=== PATIENT | male | born 1950 | race Caucasian/White ===

== ENCOUNTER 2022-03-25 06:45 | Inpatient (IN) | payer MEDICARE, MEDICAID ==
[~2022-03-25] VITALS: Ht 167.6 cm; Wt 74.8 kg
[2022-03-25] VITALS (12 sets, daily range): BP systolic 133–161; BP diastolic 54–83
[2022-03-25] MEDS ORDERED: METR-167 PO (07:48)
[2022-03-25] MEDS ORDERED: FENO145 PO (07:50)
[2022-03-25] MEDS ORDERED: PIOG30TA10 PO (07:50)
[2022-03-25] MEDS ORDERED: LINA145C PO (07:51)
[2022-03-25] MEDS ORDERED: COR25 PO (07:52)
[2022-03-25] MEDS ORDERED: HYDR-4135 PO (07:53)
[2022-03-25] MEDS ORDERED: ASPI-1406 PO (07:55)
[2022-03-25] MEDS ORDERED: CLOP-31 PO (07:55)
[2022-03-25] MEDS ORDERED: ROSU40TA PO (07:57)
[2022-03-25] MEDS ORDERED: GLIP1TAB4 MT (07:57)
[2022-03-25] MEDS ORDERED: CILO100T PO (07:59)
[2022-03-25] MEDS ORDERED: MIDAZOLAM HCL 2 MG/2 ML VIAL ONE ×2 (08:00→10:01)
[2022-03-25] MEDS ORDERED: HEPARIN 1000 UNITS/ML 10ML ONE (08:00)
[2022-03-25] MEDS ORDERED: IODIXANOL 320 MG/ML 150ML BOTTLE IV ONE (08:00)
[2022-03-25] MEDS ORDERED: CLON-457 PO (08:00)
[2022-03-25] MEDS ORDERED: LIDOCAINE HCL 1% 50ML VIAL (10MG/ML) ONE (08:00)
[2022-03-25] MEDS ORDERED: FENTANYL CITRATE/PF 50MCG/ML 2ML VIAL ONE (08:00)
[2022-03-25] MEDS ORDERED: ICOS0.5C PO (08:02)
[2022-03-25] MEDS ORDERED: TAMS-11 PO (08:03)
[2022-03-25] MEDS ORDERED: ASPIRIN 325MG TABLET ONE (10:33)
[2022-03-25] MEDS ORDERED: CLOPIDOGREL 75MG TABLET ONE (10:34)
[2022-03-25] MEDS ORDERED: ONDANSETRON HCL 4MG/2ML INJ IV PRN (10:45)
[2022-03-25] MEDS ORDERED: ATROPINE SULFATE 1MG/10ML SYR IV PRN (10:45)
[2022-03-25] MEDS ORDERED: ACETAMINOPHEN 325MG TABLET PO PRN (10:45)
[2022-03-25] MEDS: TAZOBACTAM INJ SCH ×2 (11:52→20:02)
[2022-03-25] MEDS: CEFTOLOZANE INJ SCH ×2 (11:52→20:02)
[2022-03-25] MEDS: SODIUM CHLORIDE INJ SCH ×2 (11:52→20:02)
[2022-03-25] MEDS: HYDROCODONE/ACETAMINOPHEN 10/325MG TABLET PO PRN ×2 (12:52→20:03)
[2022-03-25] MEDS ORDERED: DEXTROSE 50% WATER 50ML SYRINGE IV PRN (19:30)
[2022-03-25] MEDS: CARVEDILOL 12.5MG TABLET PO SCH (20:23)
[2022-03-25] MEDS: BLOOD SUGAR DIAGNOSTIC STRIP TEST SCH (20:24)
[2022-03-25] MEDS ORDERED: ATORVASTATIN CALCIUM 10MG TABLET PO SCH (21:00)
[2022-03-25] MEDS: AMLODIPINE 5MG TABLET PO SCH (21:18)
[2022-03-25] MEDS: INSULIN LISPRO 100 UNITS/ML SUBCUT SCH (21:19)
[2022-03-25] MEDS ORDERED: NALOXONE HCL 0.4MG/ML VIAL IV PRN (22:30)
[2022-03-25] MEDS: HYDRALAZINE HCL 50MG TABLET PO SCH (23:29)
[2022-03-26] VITALS: BP 124/55
[2022-03-26 02:00] VITALS: BP 153/63
[2022-03-26] MEDS: HYDROCODONE/ACETAMINOPHEN 10/325MG TABLET PO PRN (04:08)
[2022-03-26] MEDS: CEFTOLOZANE INJ SCH (04:12)
[2022-03-26] MEDS: SODIUM CHLORIDE INJ SCH (04:12)
[2022-03-26] MEDS: TAZOBACTAM INJ SCH (04:12)
[2022-03-26 06:00] VITALS: BP 143/58
[2022-03-26] MEDS: BLOOD SUGAR DIAGNOSTIC STRIP TEST SCH (06:53)
[2022-03-26] MEDS ORDERED: GLIPIZIDE 5MG TABLET PO SCH (07:00)
[2022-03-26] MEDS: INSULIN LISPRO 100 UNITS/ML SUBCUT SCH (07:12)
[2022-03-26 07:30] VITALS: BP 143/58
[2022-03-26 07:38] LABS: BASOPHILS % 0.7 % (0.0-2.0); EOSINOPHILS % 1.6 % (0.0-5.0); HEMATOCRIT. 27.7 % (42.0-52.0); HEMOGLOBIN. 9.1 g/dL (14.0-18.0); LYMPHOCYTES % 18.7 % (20.0-50.0); MEAN CORPUSCULAR HEMOGLOBIN 26.6 pg (28.0-32.0); MEAN CORPUSCULAR VOLUME 80.8 fL (80.0-94.0); MEAN PLATELET VOLUME 7.3 fl (7.4-10.4); MONOCYTES % 11.6 % (2.0-8.0); NEUTROPHILS % 67.4 % (40.0-76.0); PLATELET 400 x1000/uL (130-400); RED BLOOD CELL COUNT 3.43 mill/uL (4.7-6.1); RED CELL DISTRIBUTION WIDTH 15.2 % (11.6-14.6)
[2022-03-26 07:52] VITALS: BP 143/78
[2022-03-26 07:58] LABS: CHLORIDE 106 mEq/L (98-107)
[2022-03-26] MEDS: TAMSULOSIN HCL 0.4MG SR CAPSULE PO SCH ×2 (08:15→08:23)
[2022-03-26] MEDS: AMLODIPINE 5MG TABLET PO SCH (08:16)
[2022-03-26] MEDS: HYDRALAZINE HCL 50MG TABLET PO SCH (08:16)
[2022-03-26] MEDS: CARVEDILOL 12.5MG TABLET PO SCH (08:16)
[2022-03-26] MEDS ORDERED: CLOPIDOGREL 75MG TABLET PO SCH (09:00)
[2022-03-26] MEDS ORDERED: ASPIRIN 325MG TABLET PO SCH (09:00)
[2022-03-26] MEDS ORDERED: ASPIRIN 81MG EC TABLET PO SCH (09:00)
== END 2022-03-26 10:00 | disposition home or self-care (01) | DRG 253 ==
LOC: CCL 06:45 → 5EST 06:46
PROVIDERS: ADMIT Specialist; ATTEND Specialist
PROC: 047J3DZ Dilation of Left External Iliac Artery with Intraluminal Device, Percutaneous Approach (ICD-10-PCS; principal; 2022-03-25)
PROC: 047H3DZ Dilation of Right External Iliac Artery with Intraluminal Device, Percutaneous Approach (ICD-10-PCS; 2022-03-25)
DX: I70.245 Atherosclerosis of native arteries of left leg with ulceration of other part of foot (principal); M86.9 Osteomyelitis, unspecified; E11.51 Type 2 diabetes mellitus with diabetic peripheral angiopathy without gangrene; I70.8 Atherosclerosis of other arteries; I25.10 Atherosclerotic heart disease of native coronary artery without angina pectoris; I10 Essential (primary) hypertension; Z20.822 Contact with and (suspected) exposure to COVID-19; E11.621 Type 2 diabetes mellitus with foot ulcer; E78.5 Hyperlipidemia, unspecified; L97.529 Non-pressure chronic ulcer of other part of left foot with unspecified severity; N40.0 Benign prostatic hyperplasia without lower urinary tract symptoms; J44.9 Chronic obstructive pulmonary disease, unspecified; E11.40 Type 2 diabetes mellitus with diabetic neuropathy, unspecified; E11.69 Type 2 diabetes mellitus with other specified complication; Z95.1 Presence of aortocoronary bypass graft; Z79.899 Other long term (current) drug therapy; Z87.891 Personal history of nicotine dependence; Z79.84 Long term (current) use of oral hypoglycemic drugs; Z79.82 Long term (current) use of aspirin; Z89.429 Acquired absence of other toe(s), unspecified side; I70.221 Atherosclerosis of native arteries of extremities with rest pain, right leg
CPT/HCPCS: 36415; 37221; 37223; 73630; 75710; 80048; 82962; 83036; 85025; 85347; 87070; 87077; 87186; 87426; C1725; C1726; C1769; C1876; C1893; C1894; C9803; J1644; J1815; J2250; J3010; J3490; Q9967

== ENCOUNTER 2022-06-09 08:55 | Inpatient (IN) | payer MEDICARE, MEDICAID ==
[~2022-06-09] VITALS: Ht 167.6 cm; Wt 71.7 kg
[~2022-06-09 08:55] MED LIST: ASPI-1406 PO; CILO100T3 PO; CLON-457 PO; CLOP-31 PO; COR25 PO; FENO145 PO; GLIP1TAB4 MT; HYDR-4135 PO; ICOS0.5C PO; LINA145C PO; METR-167 PO; PIOG30TA10 PO; ROSU40TA PO; TAMS-11 PO
[2022-06-09] MEDS ORDERED: IODIXANOL 320MG/ML 100 ML BOTTLE IV ONE (09:13)
[2022-06-09] MEDS ORDERED: GABA-532 PO (09:59)
[2022-06-09] MEDS ORDERED: HEPARIN 1000 UNITS/ML 10ML ONE (10:27)
[2022-06-09] MEDS ORDERED: MIDAZOLAM HCL 2 MG/2 ML VIAL ONE ×2 (10:28→11:21)
[2022-06-09] MEDS ORDERED: FENTANYL CITRATE/PF 50MCG/ML 2ML VIAL ONE (10:28)
[2022-06-09] MEDS ORDERED: LIDOCAINE HCL/PF 1% 10 MG/ML 5ML VIAL ONE ×2 (10:32→10:50)
[2022-06-09] MEDS ORDERED: CLOPIDOGREL 75MG TABLET ONE (11:24)
[2022-06-09] MEDS ORDERED: ASPIRIN 325MG TABLET ONE (11:24)
[2022-06-09] MEDS ORDERED: ATROPINE SULFATE 1MG/10ML SYR IV PRN (11:45)
[2022-06-09] MEDS ORDERED: ACETAMINOPHEN 325MG TABLET PO PRN (11:45)
[2022-06-09] MEDS ORDERED: ONDANSETRON HCL 4MG/2ML INJ IV PRN (11:45)
[2022-06-09] MEDS ORDERED: ZOLPIDEM TARTRATE 5MG TABLET PO PRN (13:00)
[2022-06-09 14:54] VITALS: BP 150/67
[2022-06-09 16:00] VITALS: BP 136/76
[2022-06-09 20:00] VITALS: BP 139/66
[2022-06-10] VITALS: BP 148/74
[2022-06-10 04:00] VITALS: BP 152/76
[2022-06-10 07:16] LABS: BASOPHILS % 0.4 % (0.0-2.0); EOSINOPHILS % 0.8 % (0.0-5.0); HEMATOCRIT. 33.7 % (42.0-52.0); HEMOGLOBIN. 11.2 g/dL (14.0-18.0); LYMPHOCYTES % 19.7 % (20.0-50.0); MEAN CORPUSCULAR HEMOGLOBIN 25.7 pg (28.0-32.0); MEAN CORPUSCULAR VOLUME 76.9 fL (80.0-94.0); MEAN PLATELET VOLUME 7.6 fl (7.4-10.4); MONOCYTES % 8.7 % (2.0-8.0); NEUTROPHILS % 70.4 % (40.0-76.0); PLATELET 442 x1000/uL (130-400); RED BLOOD CELL COUNT 4.38 mill/uL (4.7-6.1); RED CELL DISTRIBUTION WIDTH 16.2 % (11.6-14.6)
[2022-06-10 07:53] LABS: CHLORIDE 100 mEq/L (98-107)
[2022-06-10 08:27] VITALS: BP 152/73
[2022-06-10] MEDS ORDERED: ASPIRIN 325MG TABLET PO SCH (09:00)
[2022-06-10] MEDS ORDERED: CLOPIDOGREL 75MG TABLET PO SCH (09:00)
[2022-06-10] MEDS ORDERED: ASPIRIN 81MG TABLET PO SCH (09:00)
== END 2022-06-10 09:45 | disposition home or self-care (01) | DRG 254 ==
LOC: CCL 08:55 → 3WST 08:56
PROVIDERS: ADMIT Specialist; ATTEND Specialist
PROC: 047N34Z Dilation of Left Popliteal Artery with Drug-eluting Intraluminal Device, Percutaneous Approach (ICD-10-PCS; principal; 2022-06-09)
DX: E11.51 Type 2 diabetes mellitus with diabetic peripheral angiopathy without gangrene (principal); I25.10 Atherosclerotic heart disease of native coronary artery without angina pectoris; I10 Essential (primary) hypertension; E03.9 Hypothyroidism, unspecified; N40.0 Benign prostatic hyperplasia without lower urinary tract symptoms; E78.5 Hyperlipidemia, unspecified; Z79.84 Long term (current) use of oral hypoglycemic drugs; Z79.899 Other long term (current) drug therapy; Z95.1 Presence of aortocoronary bypass graft; Y83.8 Other surgical procedures as the cause of abnormal reaction of the patient, or of later complication, without mention of misadventure at the time of the procedure; Y92.89 Other specified places as the place of occurrence of the external cause
CPT/HCPCS: 36415; 37230; 75710; 80048; 85025; C1760; C1769; C1874; C1893; C1894; J1644; J2250; J3010; J3490; Q9967

== ENCOUNTER → 2025-07-19 | Day surgery (SDC) | payer MEDICARE, MEDICAID ==
[~2025-07-19] VITALS: Ht 170.2 cm; Wt 77.1 kg
[~2025-07-19] MED LIST changes: +ACETAMINOPHEN 325MG TABLET PO PRN; +AMLO10TA80 PO; +ATROPINE SULFATE 1MG/10ML SYR IV PRN; +CHOL400D7 PO; -CILO100T3 PO; -CLON-457 PO; +CLON-493 PO; +CLOT15CR27 TP; +DAPA10TA PO; +DULA1.5P SQ; +FENTANYL CITRATE/PF 50MCG/ML 2ML VIAL ONE; +GABA-1180 PO; +GUAN2TAB19 PO; +HEPARIN 1000 UNITS/ML 10ML ONE; -HYDR-4135 PO; +HYDR50TA40 PO; +INSU100I24 SQ; +INSU100I41; +IODIXANOL 320MG/ML 100 ML BOTTLE IV ONE; +KETO15CR2 TP; +LEVO25TA7 PO; +LIDOCAINE HCL 1% 20ML VIAL ONE; -METR-167 PO; +MIDAZOLAM HCL 2 MG/2 ML VIAL ONE; +MUPI15CR11 TP; +NITR1OIN TD; +OLME40TA18 PO; +ONDANSETRON HCL 4MG/2ML INJ IV PRN; +PANT20TA17 PO; +PRED5DRO22 OP; +SEMA0.258 SQ; -TAMS-11 PO; +TAMS-54 PO
[2025-07-19 11:54] VITALS: BP 132/69; PULSE 65; RESP 17
[2025-07-19] MEDS: MORPHINE SULFATE 2 MG/ML INJ (NOT FOR IM USE) IV SCH (11:54)
== END | disposition home or self-care (01) ==
LOC: CCL 08:38
PROVIDERS: ATTEND Specialist
DX: I35.0 Nonrheumatic aortic (valve) stenosis (principal); I25.10 Atherosclerotic heart disease of native coronary artery without angina pectoris; I13.11 Hypertensive heart and chronic kidney disease without heart failure, with stage 5 chronic kidney disease, or end stage renal disease; E11.22 Type 2 diabetes mellitus with diabetic chronic kidney disease; N18.6 End stage renal disease; I25.2 Old myocardial infarction; E03.9 Hypothyroidism, unspecified; I73.9 Peripheral vascular disease, unspecified; Z79.02 Long term (current) use of antithrombotics/antiplatelets; Z79.1 Long term (current) use of non-steroidal anti-inflammatories (NSAID); Z79.4 Long term (current) use of insulin; Z79.82 Long term (current) use of aspirin; Z79.84 Long term (current) use of oral hypoglycemic drugs; Z79.899 Other long term (current) drug therapy; Z79.890 Hormone replacement therapy; Z95.1 Presence of aortocoronary bypass graft; Z98.890 Other specified postprocedural states; Z87.891 Personal history of nicotine dependence; Z82.49 Family history of ischemic heart disease and other diseases of the circulatory system
CPT/HCPCS: 93455; 82962; C1893; C1725; C1769 ×2; J3010; Q9967; J1644 ×2; J2003; J2250; J2270; A4615; C1887; 99152; 99153; A4606; G0500